=== PATIENT | female | born 1935 | race Caucasian/White ===

== ENCOUNTER 2024-04-23 20:36 | Emergency (ER) | payer MEDICARE ==
[~2024-04-23] VITALS: Ht 162.6 cm; Wt 61.2 kg
[2024-04-23 21:10] VITALS: PULSE 69; RESP 18; TEMP 98.2
[2024-04-23] MEDS ORDERED: CLEOCIN HCL300 MG PO (21:21)
[2024-04-23 22:02] VITALS: BP 148/84; PULSE 69; RESP 18; TEMP 98.2; O2SAT 95
== END 2024-04-23 22:02 | disposition home or self-care (01) ==
LOC: FSED 20:45
DX: S90.511A Abrasion, right ankle, initial encounter (principal); L08.9 Local infection of the skin and subcutaneous tissue, unspecified
CPT/HCPCS: 99283